=== PATIENT | female | born 1960 | race Caucasian/White ===

== ENCOUNTER → 2016-04-10 | Day surgery (SDC) | payer OTHER ==
[~2016-04-10] MED LIST: BACT800T5 PO; CEPH500C3 PO; KETOROLAC TROMETHAMINE 30 MG/ML (IVP) VIAL ONE; LACTATED RINGER'S 1000 ML INJ 1,000 ML ONE; LIPI40TA PO; METF500 PO; MIDAZOLAM HCL 2 MG/2 ML VIAL ONE; ONDANSETRON HCL 4 MG/2 ML VIAL IV PUSH ONE; PROPOFOL 200 MG/20 ML AMP IV ONE; blood pressure med PO; ceFAZolin 2 GM PREMIX 50 ML ONE
--- NOTE | 2016-04-10 17:56 | MP ---
cc: SALONI MCINTOSH DAVID DATE OF SURGERY 04/10/16 PREOPERATIVE DIAGNOSIS Patient with postmenopausal bleeding. PROCEDURE Diagnostic hysteroscopy with fractional D&C. POSTOPERATIVE DIAGNOSIS Patient with postmenopausal bleeding. SURGEON Jb Mcintosh MD ANESTHESIA General LMA ESTIMATED BLOOD LOSS Minimal, less than 10 mL. DRAINS None. SURGICAL SPECIMENS Endocervical and endometrial sampling. INDICATIONS FOR PROCEDURE Patient with postmenopausal bleeding episode. ultrasound revealed thickened endometrial cavity. Recommendation to proceed with endoscopic directed biopsy, hysteroscopy and D&C. PROCEDURE IN DETAIL The patient received Ancef prophylactically. She underwent general anesthesia with LMA placement. She was then carefully positioned on the operative table in dorsolithotomy position using candy-cane stirrups. She had sequentialS placed on lower extremities for VTE prophylaxis. She was prepped and draped. a time-out was then conducted and agreed by all present in the room. Procedure continued by examining the external genitalia and the pelvis. The patient had about 2 degrees of uterine prolapse. She had atrophy, otherwise, no focal abnormality. Uterus measured about 8 weeks in size. Cervix is secured with a single-tooth tenaculum after visualization with the retractor. The endocervical sampling was then obtained without complication. A uterine sound was then placed gently in an anteverted position to about 7 cm. The cervix was then dilated and a rigid 5 mm hysteroscope was used to examine the endometrial cavity. The cavity was atrophic in appearance. There was an arcuate appearance of the anatomy, otherwise, no focal abnormality. No mass, no lesion. No perforation. After completion of the hysteroscopy, endometrial curettings were obtained and sent in formalin. At the completion of the case, final count was correct. There was no active bleeding. The patient was stable. She was taken to recovery room, extubated on room air. MD SARAVANAN Pina/ /8:28 AM /5:47 PM
== END | disposition home or self-care (01) ==
LOC: ESDC 07:22
PROVIDERS: ATTEND Obstetrics & Gynecology
DX: N95.0 Postmenopausal bleeding (principal)
CPT/HCPCS: 00952; 58558; 88305; J0690; J1885; J2250; J2405; J3010; J7120